=== PATIENT | female | born 1985 | race Caucasian/White ===

== ENCOUNTER 2016-10-26 17:02 | Outpatient (CLI) | payer BC ==
[2016-11-19] MEDS ORDERED: MOTRIN-DPS800 MG PO (10:40)
[2016-11-19] MEDS ORDERED: PERCOCET 5 DPS1 TAB PO (10:40)
[2016-11-19] MEDS ORDERED: COLACE-DPS100 MG PO (10:40)
[2016-11-19] MEDS ORDERED: PRENATAL VIT1 TAB PO (10:40)
[2016-11-19] MEDS ORDERED: NIPPLECREAM TP (10:40)
[2016-11-19] MEDS ORDERED: PRILOSEC DPS20 MG PO (10:41)
[2016-11-19] MEDS ORDERED: IRON325 M1 PO (10:41)
== END 2016-10-26 17:40 | disposition home or self-care (01) ==
LOC: 2LDRP 17:02 → BC 17:02
DX: O16.3 Unspecified maternal hypertension, third trimester (principal); Z3A.34 34 weeks gestation of pregnancy

== ENCOUNTER 2016-10-31 10:05 | Observation (INO) | payer BC ==
[2016-11-19] MEDS ORDERED: PRENATAL VIT1 TAB PO (10:40)
[2016-11-19] MEDS ORDERED: COLACE-DPS100 MG PO (10:40)
[2016-11-19] MEDS ORDERED: MOTRIN-DPS800 MG PO (10:40)
[2016-11-19] MEDS ORDERED: PERCOCET 5 DPS1 TAB PO (10:40)
[2016-11-19] MEDS ORDERED: NIPPLECREAM TP (10:40)
[2016-11-19] MEDS ORDERED: IRON325 M1 PO (10:41)
[2016-11-19] MEDS ORDERED: PRILOSEC DPS20 MG PO (10:41)
== END 2016-10-31 14:45 | disposition home or self-care (01) ==
LOC: BC 10:05 → 2LDRP 10:06
PROVIDERS: ADMIT Family Medicine
DX: O24.419 Gestational diabetes mellitus in pregnancy, unspecified control (principal); Z3A.34 34 weeks gestation of pregnancy

== ENCOUNTER 2016-11-15 15:30 | Inpatient (IN) | payer BC ==
[~2016-11-15] VITALS: Ht 160 cm; Wt 121.1 kg
[2016-11-19] MEDS ORDERED: NIPPLECREAM TP (10:40)
[2016-11-19] MEDS ORDERED: PRENATAL VIT1 TAB PO (10:40)
[2016-11-19] MEDS ORDERED: COLACE-DPS100 MG PO (10:40)
[2016-11-19] MEDS ORDERED: PERCOCET 5 DPS1 TAB PO (10:40)
[2016-11-19] MEDS ORDERED: MOTRIN-DPS800 MG PO (10:40)
[2016-11-19] MEDS ORDERED: IRON325 M1 PO (10:41)
[2016-11-19] MEDS ORDERED: PRILOSEC DPS20 MG PO (10:41)
--- NOTE | 2016-11-21 07:37 | HP ---
ADMIT: 11/15/2016 RM/LOC: 219 [facility] MR#: [id number] [address] [address] [place] [address] Pre-OP History and Physical SEX: F AGE: 31 : 1985 DATE OF SERVICE: CHIEF COMPLAINT: Elevated blood pressure. HISTORY OF PRESENT ILLNESS: The patient is a 31-year-old, 1 female, who presents at 37 weeks with elevated blood pressures. She has had gestational diabetes during her diagnosed at 24 weeks' gestation on a 3-hour glucose. Initially, started oral hypoglycemics, but those were ineffective, so she transitioned to insulin and took a few weeks to get her fastings down, but has been well controlled lately. Reviewing sugars from the past week, they are all to goal than they have been for the last several weeks. She has followed with Maternal Medicine as well for the gestational diabetes and also because her blood pressures occasionally would be elevated. It has not been consistent in prior preeclampsia labs have been done and all have been within normal limits. She has had mild anemia and some reflux during the . PAST MEDICAL HISTORY: The patient has obesity, but no other severe chronic medical issues. No history of diabetes or high blood pressure when checked prior to this , and she has only had migraine headaches. This is a chronic issue and was hospitalized in 2003, but not since. No problems with that during her . MEDICATIONS: 1. vitamin daily. 2. Lantus b.i.d. ALLERGIES: PENICILLIN AND SULFA. FAMILY HISTORY: Significant for mother with hypertension. Maternal grandmother had diabetes. SOCIAL HISTORY: The patient is and denies any tobacco alcohol or drug use. Works in the office at [employer]. PHYSICAL EXAMINATION: VITAL SIGNS: The patient is afebrile, weight is 267 pounds. Blood pressures have ranged from the 140s to 160s/80s to 90s here during monitoring through the afternoon. Her estimated weight this morning on ultrasound was 9 pounds 15 ounces or 4.5 kilos. HEART: Regular without murmurs. LUNGS: Sound clear. ABDOMEN: Gravid, nontender. She is not having any significant contractions on tocometry just some irritability occasionally. EXTREMITIES: Have 1+ edema bilaterally. LABORATORY DATA: Her CBC shows mild anemia with a hemoglobin of 11.6 and platelets are 285. CMP looks normal with normal LFTs, and creatinine is 0.9. UA shows no protein on the dip, and her protein to creatinine ratio was normal. ADMIT: 11/15/2016 RM/LOC: 219 [facility] MR#: [id number] [address] [address] [place] MELTON [address] [place] [address] Pre-OP History and Physical SEX: F AGE: 31 : 1985 ASSESSMENT: 1. Intrauterine at 37 weeks' gestation. 2. Gestational diabetes, insulin controlled. 3. Gestational hypertension. PLAN: We will proceed with primary low-transverse section given her gestational diabetes and a 4.5 kg estimated weight. She has been counseled on possibility of versus trial of labor. Agreed that she would rather proceed with section as recommended by current guidelines. Also, recommended delivery obviously at this point given her elevated blood pressures at 37 weeks with some in the severe range. We will follow along closely postoperatively. Marce Tang MD/ brian JOB #: [id number] CC: Marce Tang, Attending Physician Marce Tang, Family Physician
--- NOTE | 2016-12-12 12:45 | CO ---
ADMIT: 11/15/2016 RM/LOC: 219 [facility] MR#: [id number] [address] [address] [place] M[place] J[place]OD [place]UD[place] [address] Consultation SEX: F AGE: 31 : 1985 DATE OF CONSULTATION: 11/15/2016 ATTENDING PHYSICIAN: Marce Tang CONSULTING PHYSICIAN: Cindy Arriaga MD REASON FOR CONSULTATION: Elevated blood pressure. HISTORY OF PRESENT ILLNESS: This is a 31-year-old female, 1, para 0, who presented to the [facility] with an intrauterine at 37 weeks' gestation with an estimated date of confinement of 12/06/2016. Her estimated confinement is based off an 8-week ultrasound. Her has been complicated by obesity; gestational diabetes, requiring insulin; macrosomia; and gestational hypertension. She did have one blood pressure that was 140/84 prior to 20 weeks. Since 20 weeks, she has had occasional blood pressures 140/90. Today, she did see Maternal- Medicine and had a blood pressure systolic over 160. Estimated weight on ultrasound by maternal medicine was 4500 g. She was sent to the [facility] for further monitoring. She continues to have elevated blood pressures. Her labs have all been normal. At this time, given her estimated gestational age of 37 weeks, elevated blood pressures consistent with gestational hypertension and estimated weight of 4500 g. We have discussed a primary section and delivery . LABORATORY DATA: Blood type is A positive. Antibody screen negative, rubella immune, serology nonreactive, hepatitis B surface antigen negative, HIV negative, gonorrhea chlamydia is negative, group B Strep is negative. PAST MEDICAL HISTORY: She denies hypertension outside of , diabetes outside of , asthma, kidney, or thyroid disease. PAST SURGICAL HISTORY: None. SOCIAL HISTORY: She denies tobacco, alcohol, or drug use. ALLERGIES: PENICILLIN AND SULFA. PHYSICAL EXAMINATION: VITAL SIGNS: Temperature is 98.1, blood pressure 140/90, pulse 87, and respirations 16. GENERAL: She is not in any acute distress. HEENT: Head is normocephalic, atraumatic. Pupils are equal, round, react to light and accommodation. Extraocular muscles are intact. NECK: Supple. HEART: Regular rate and rhythm. LUNGS: Clear bilaterally. ABDOMEN: Soft, nontender, and nondistended. Gravid and obese. EXTREMITIES: Nontender. She does have 2+ edema bilaterally. heart tones are 140 baseline. Moderate variability is present, 15 x 15 ADMIT: 11/15/2016 RM/LOC: 219 [facility] MR#: [id number] [address] [address] [place] MELTON [address] [place] [address] Consultation SEX: F AGE: 31 : 1985 accelerations are present. Decelerations are absent. Uterine contractions are irregular. Cervical exam is deferred. IMPRESSION: 1. This is a 31-year-old female, 1, para 0, with an intrauterine at 37 weeks' gestation. 2. Gestational diabetes requiring insulin. 3. Gestational hypertension. 4. Suspected macrosomia with estimated weight of 4500 g. 5. Obesity. PLAN: At this time, we do plan to proceed with a primary section for delivery. Risks, benefits, and alternatives have been discussed with the patient including, but not limited to the risks for bleeding, infection, potential for injury to the bowel, bladder, major vessels, or other nearby organs requiring repair. We have also discussed the potential need for blood transfusion and the risks associated with this and she does agree to a blood transfusion if needed. All of her questions have been answered and she agrees to proceed. Cindy Arriaga MD/ brian JOB #: [id number] CC: Marce Tang, Attending Physician Marce Tang, Family Physician
--- NOTE | 2016-12-12 12:49 | OR ---
ADMIT: 11/15/2016 RM/LOC: 219 [facility] MR#: [id number] [address] [address] [place] [address] Operative/Delivery Room Report SEX: F AGE: 31 : 1985 SURGERY DATE: 11/15/2016 SURGEON: Cindy Arriaga MD PREOPERATIVE DIAGNOSES: 1. Intrauterine at 37 weeks' gestation. 2. Gestational hypertension. 3. Gestational diabetes mellitus, insulin requiring. 4. Obesity. 5. Suspected macrosomia with estimated weight of 4500 g on the day of admission. POSTOPERATIVE DIAGNOSES: 1. Intrauterine at 37 weeks' gestation. 2. Gestational hypertension. 3. Gestational diabetes mellitus, insulin requiring. 4. Obesity. 5. Suspected macrosomia with estimated weight of 4500 g on the day of admission. 6. Delivery of a viable male at 2024 hours, weighing 9 pounds 6.5 ounces (4266 g) with scores of 5 at 1 minute, 6 at 5 minutes, and 7 at 10 minutes. PROCEDURE: Primary low transverse section. ASSISTANTS: 1. Marce Tang MD. 2. Nury Harris MD Resident. ANESTHESIA: Spinal. COMPLICATIONS: None. ESTIMATED BLOOD LOSS: 600 mL. FLUIDS: Crystalloid. INDICATIONS: This is a 31-year-old female, 1, para 0, who presented [facility] with an intrauterine at 37 weeks' gestation for observation secondary to elevated blood pressures. She was noted to have persistently mildly elevated blood pressures with occasionally severe range pressures. Given her gestational age, the decision was made to proceed with delivery. Her was also complicated by insulin-requiring gestational diabetes. She was seen and evaluated by Maternal Medicine on the day of admission. She did have an ultrasound demonstrating an estimated weight of approximately 4500 g. Therefore, given these findings, the decision was made to proceed with a primary section. We did review the risks, benefits, and alternatives prior to proceeding and she agreed to proceed. ADMIT: 11/15/2016 RM/LOC: 219 [facility] MR#: [id number] [address] [address] [place] MEL[place] [address] [place] [address] Operative/Delivery Room Report SEX: F AGE: 31 : 1985 FINDINGS: Normal maternal uterus, tubes, and ovaries. Male infant as above. DESCRIPTION OF PROCEDURE: The patient was properly identified. Informed consent was obtained. She was then taken to the operating room, where spinal anesthesia was placed. She was then placed in the dorsal supine position with a leftward tilt. She was then prepped and draped in usual sterile fashion. After adequate spinal anesthesia was established, a Pfannenstiel skin incision was made with a scalpel. This was carried through to the underlying layer of fascia. The fascia was then incised in the midline and the incision was extended laterally using the Batista scissors. The superior aspect of the fascia was grasped with Floyd clamps, elevated, and the underlying rectus muscles were dissected off. Attention was then turned to the inferior aspect of the fascia. In a similar manner, it was grasped with Floyd clamps, elevated, and the underlying rectus muscles were dissected off. The rectus muscles were in the midline. The peritoneum was identified and entered bluntly. The peritoneal incision was then extended with the stretch maneuver. The bladder blade was placed. The vesicouterine peritoneum was identified, grasped with pickups, and entered sharply with the Metzenbaum scissors. The incision was extended laterally and a bladder flap was created digitally. The bladder blade was then replaced and the lower uterine segment was incised in a transverse fashion with the scalpel. The uterine incision was then extended with a stretch maneuver. The bladder blade was removed and the 's vertex was delivered atraumatically. Nuchal cord was checked, none was noted. The anterior and posterior shoulders as well as remainder of the infant were easily delivered. The infant did have spontaneous cry and movement of all 4 extremities. The cord was clamped x2 and cut, and the was taken to the warmer where nursing personnel and Dr. Tang were in attendance. Cord blood was obtained. The placenta delivered with help from traction and uterine massage. The uterus was exteriorized and cleared of all clot and debris. The uterine incision was repaired with 0 Vicryl in a running, locked ADMIT: 11/15/2016 RM/LOC: 219 [facility] MR#: [id number] [address] [address] [place] MEL[place] [address] [place] [address] Operative/Delivery Room Report SEX: F AGE: 31 : 1985 fashion. A single [id number] stitch was placed to obtain excellent hemostasis. The uterus was then returned to the abdomen. The gutters were cleared of all clot and debris. The uterine incision was re-inspected and noted to be hemostatic. The posterior aspect of the rectus fascia and the rectus muscles were made hemostatic with use of electrocautery. The rectus fascia was then reapproximated with 0 Vicryl in a running, nonlocking fashion. Subcutaneous tissues were made hemostatic with use of electrocautery, they were reapproximated using 2-0 plain. Subcuticular coty were placed followed by a few Steri-Strips to reapproximate the edges. A Prevena Plus dressing was then applied. The patient tolerated the procedure well. Sponge, lap, needle, and instrument counts were correct. The patient was taken to recover in her Labor and Delivery suite with her . Cindy Arriaga MD/ brian JOB #: [id number] CC: Marce Tang, Attending Physician Marce Tang, Family Physician
--- NOTE | 2016-12-18 10:29 | DS ---
ADMIT: 11/15/2016 RM/LOC: 219 [facility] MR#: [id number] [address] [place], [place] [address] GERONIMO ALBERTA Nick[address] [place] [address] Discharge Summary SEX: F AGE: 31 : 1985 Corrected: 11/18/2016 1220 njv and 12/15/2016 1431 djs ADMISSION DATE: 11/15/2016 DISCHARGE DATE: 11/18/2016 FINAL DIAGNOSES: 1. A 31-year-old female, 1, para 1-0-0-1, status post primary low transverse section at 37 weeks. 2. Gestational diabetes, on insulin and metformin. 3. Gestational hypertension with negative preeclampsia laboratory evaluation. 4. Concern for LGA (large for gestational age) with ultrasound estimating greater than 4500 g. REASON FOR ADMISSION: This is a 31-year-old, G1, P0, with intrauterine at 37 weeks 0 days, who was admitted due to elevated blood pressures. Blood pressures were monitored and preeclampsia evaluation was performed. Preeclampsia labs were negative. Her blood pressures remained less than 160/110 during this admission. Given that she had a term at 37 weeks in the setting of gestational hypertension as well as gestational diabetes with concern for LGA , the decision was made to proceed with primary low transverse section. HOSPITAL COURSE: The patient was admitted. She ultimately underwent a primary low transverse section and had male infant with Apgars of 5, 6, and 7. The baby initially went to the Intensive Care Unit secondary to tachypnea and hypoglycemia. The baby also experienced difficulties with feeding. These problems were resolved and infant returned to mother's room and normal nursery on day two. The patient's hospital course was relatively uncomplicated. Her blood sugars were monitored before meals and before bedtime, and found to be within goal without insulin. The decision was made to discontinue glucose checks and insulin at the time of discharge. Would recommend follow-up glucose tolerance test at six weeks . In regard to her gestational hypertension, her blood pressures were monitored throughout her hospital stay. All blood pressures remained less than 160/110. She did not require further intervention or treatment of blood pressures. She did not develop preeclampsia. Did discuss symptoms of preeclampsia with the patient prior to discharge and would recommend follow-up blood pressure check within one week of discharge. The patient is as well as supplementing with a bottle. She is meeting discharge criteria and desires to be discharged home today, day three. She is currently undecided on contraception and will discuss her options with her primary care physician. She will follow up with Dr. Arriaga in four days for removal of her ProVena Wound Vac. Follow up with Dr. Tang in six weeks for routine check. Reviewed precautions with the patient. DELIVERY INFORMATION: Delivery date: 11/15/2016 at 2024 hours. Sex: Male. ADMIT: 11/15/2016 RM/LOC: 219 [facility] MR#: [id number] [address] [place] [id number] [place] MELTON [address] [place] [address] Discharge Summary SEX: F AGE: 31 : 1985 Delivery type: Primary low transverse section. Apgars: 5, 6, and 7. weight: 9 pounds 6 ounces, which was large for gestational age. LABORATORY DATA: All labs are final at time of discharge. DISCHARGE MEDICATIONS: Patient to be discharged to home on: 1. Percocet 5 mg/325 mg q.6 hours p.r.n. 2. Motrin 800 mg q.8 hours p.r.n. 3. Colace 100 mg b.i.d. p.r.n. 4. Recommend continuation of vitamin. 5. Recommend continuation of Prilosec. 6. Recommend discontinuation of Lantus insulin at this time. DISCHARGE INSTRUCTIONS: The patient was instructed to have pelvic rest for six weeks. Recommended no driving while on narcotics. Recommended lifting restriction of 20 pounds for six weeks. She should notify her physician with a temperature greater than 100.4, if she is having brisk vaginal bleeding that soaks through more than one pad per hour, or if any area of her breast becomes red or painful, or if her pain is no longer controlled by pain medications. Recommended a general diet as tolerated and increased fluid intake. Discussed symptoms of blues and depression and to contact us immediately should that become a concern. FOLLOW UP: Follow up with Dr. Cindy Arriaga in four days for removal of ProVena Wound Vac and with Dr. Marce Tang in six weeks for check. Nury Harris MD Resident / Marce Tang MD / yolette JOB #: [id number] CC: Cindy Arriaga, Attending Physician Marce Tang, Family Physician Corrected: 11/18/2016 1220 yolette and 12/15/2016 1431 sudhir
== END 2016-11-18 11:30 | disposition home or self-care (01) | DRG 765 ==
LOC: BC 15:30 → 2LDRP 15:30 → BC 12-06 08:00
PROVIDERS: ADMIT Family Medicine
PROC: 10D00Z1 Extraction of Products of Conception, Low, Open Approach (ICD-10-PCS; principal; 2016-11-15)
DX: O13.4 Gestational [pregnancy-induced] hypertension without significant proteinuria, complicating childbirth (principal); Z68.41 Body mass index [BMI] 40.0-44.9, adult; O24.424 Gestational diabetes mellitus in childbirth, insulin controlled; O36.63X0 Maternal care for excessive fetal growth, third trimester, not applicable or unspecified; O99.214 Obesity complicating childbirth; E66.9 Obesity, unspecified; Z3A.37 37 weeks gestation of pregnancy; Z37.0 Single live birth; Z88.0 Allergy status to penicillin; O90.81 Anemia of the puerperium; D64.9 Anemia, unspecified; Z88.2 Allergy status to sulfonamides